=== PATIENT | female | born 2005 | race Two or more races ===

== ENCOUNTER 2025-05-02 01:33 | Emergency (ER) | payer MEDICAID, SELFPAY ==
[2025-05-02 01:34] VITALS: BMI 34.3
[2025-05-02 01:53] VITALS: BP 148/95; PULSE 95; RESP 18; TEMP 36.9; O2SAT 98
--- NOTE | 2025-05-02 03:08 | EDNOTE_ITS ---
<Statement entered by Destiny Rodrigues MD - 05/02/25 04:47> As co-signing physician, I was present and available for consult prn. I concur with the plan and care as documented by the midlevel provider. ED Chest Pain RME/HPI General Chief Complaint: Chest Pain Stated Complaint: CHEST PAIN GOING TO BACK AND HARD TO BREATH Time Seen by Provider: 05/02/25 03:04 Arrival date/time: 05/02/25 01:33 19F with history of anxiety presents to ED with intermittent CP and SOB. Patient denies URI symptoms, recent travel, and leg swelling. Limitations: no limitations Related Data Allergies Allergy/AdvReac Type Severity Reaction Status Date / Time No Known Allergies Allergy Verified 05/02/25 01:34 Review of Systems Review of Systems Systems Reviewed: All systems reviewed, normal except as documented Constitutional Constitutional: Reports system reviewed and no additional complaints, except as documented, Denies fever(s) and Denies headache(s) ENT Ears, Nose, Mouth, and Throat: Denies disequilibrium and Denies headache(s) Cardiovascular Cardiovascular: Reports system reviewed and no additional complaints, except as documented, Reports as per HPI, Reports chest pain and Reports dyspnea Respiratory Respiratory: Reports system reviewed and no additional complaints, except as documented, Denies cough and Reports dyspnea Gastrointestinal Gastrointestinal: Reports system reviewed and no additional complaints, except as documented, Denies abdominal pain, Denies nausea and Denies vomiting Neurologic Neurologic: Reports system reviewed and no additional complaints, except as documented, Denies confusion, Denies disequilibrium and Denies headache(s) Psychiatric Psychiatric: Denies confusion Past Medical History Social History SMOKING STATUS: Never smoker ED Exam General Limitations: Present no limitations General appearance: Present alert, in no apparent distress and anxious Head Head exam: Present atraumatic Eye Eye exam: Present normal appearance, PERRL and EOMI ENT ENT exam: Present normal exam, normal oropharynx and mucous membranes moist Neck Neck exam: Present normal inspection, full ROM and trachea midline Chest Chest inspection: Present normal inspection and symmetric chest wall rise Respiratory Respiratory exam: Present normal lung sounds bilaterally Cardiovascular Cardiovascular exam: Present regular rate, normal rhythm and normal heart sounds Abdominal Exam Abdominal exam: Present soft and normal bowel sounds Extremities Exam Extremities exam: Present normal inspection and full ROM Back Exam Back exam: Present normal inspection and full ROM Neurological Exam Neurological exam: Present alert, oriented X3 and CN II-XII intact Psychiatric Psychiatric exam: Present normal affect and normal mood Skin Skin exam: Present warm, dry, intact and normal color Course Quality Measures none Orders Category Date Time Status EKG (ED ONLY) *Do not use* NOW Care 05/02/25 01:38 Completed EKG (ED Only) Stat Exams 05/02/25 01:38 Ordered Vital Signs Vital signs: Vital Signs Temperature 98.4 F 05/02/25 01:53 Pulse Rate 95 05/02/25 01:53 Respiratory Rate 18 05/02/25 01:53 Blood Pressure 148/95 H 05/02/25 01:53 Pulse Oximetry (%) 98 05/02/25 01:53 Oxygen Delivery Method Room Air 05/02/25 01:53 O2 at 98% on RA and WNLs Chest Pain MDM Narrative MDM Narrative:: 19F with history of anxiety presents to ED with intermittent CP and SOB. Patient denies URI symptoms, recent travel, and leg swelling. Physical exam reveals chest wall tenderness. Clear lungs. Normal WOB. Patient is afebrile, alert, but anxious. EKG is NSR. Likely costochondritis exacerbated by anxiety. Patient data External records reviewed:: None Clinical information provided by:: patient Social determinants that could affect healthcare access:: none Patient has the following chronic illnesses:: none How is presenting disease/condition affected by chronic disease/condition?: no chronic disease Evaluation data The following diagnostics were reviewed and interpreted by me:: EKG tracing(s) Lab and/or radiology exams considered but not ordered:: ordered Interpretation Summary: above Medications / Prescriptions Medications or Prescriptions considered but not ordered:: not rodered Medication administrations:: n/a Consultations Consultation(s) initiated? (list below): No Diagnosis Chest Pain Differential Diagnosis: fracture of rib, pneumothorax, stable angina, unstable angina pectoris, atypical chest pain, st elevation myocardial infarction, costochondritis, chest pain, biliary colic and other (costochondritis) Most likely diagnosis given after review of the tests above:: costochondritis and anxiety Admission Indicated Admission indicated?: not indicated Admission Request Was there a request for admission?: No Disposition Plan Disposition Plan: Discharge Discharge Attestation Discharge Attestation: The patient and all family members were given an opportunity to ask questions and understood the discharge instructions. Discharge instructions specifically effects, indications for sooner follow up or return to the emergency department, and the expected course of current diagnosis. Patient condition: Stable Discharge Plan Plan Patient Disposition: HOME (Self Care) Discharge Disposition comment: Stable Problem List Clinical Impression: Anxiety, Costochondritis Patient/Caregiver Discharge Instructions Education Materials: Your Body's Response to Anxiety, ED Chest Wall Pain, Costochondritis Additional Instructions: Please follow-up with PCP within 24-48 hours and return immediately if symptoms worsen. Print Language: Kinyarwanda Stand Alone Forms: Patient Portal Info Letter KATE/BENJIE Supervising Physician KATE/BENJIE Supervising Physician: Dr. Rodrigues
[2025-05-02 03:10] VITALS: RESP 16
== END 2025-05-02 03:10 | disposition home or self-care (01) ==
LOC: SERX 06:22
PROVIDERS: Emergency Provider Emergency Medicine; PCP Family Medicine
DX: M94.0 Chondrocostal junction syndrome [Tietze] (principal); F41.9 Anxiety disorder, unspecified
CPT/HCPCS: 93005; 99282